=== PATIENT | female | born 1955 | race Caucasian/White ===

== ENCOUNTER 2021-05-04 05:38 | Inpatient (IN) ==
[2021-05-04] MEDS ORDERED: ceFAZolin 1,000 MG VIAL ONE (05:59)
[2021-05-04] MEDS ORDERED: VANCOMYCIN 1,000 MG VIAL ONE (05:59)
[2021-05-04] MEDS ORDERED: DIAZEPAM 5 MG TABLET PO ONE (06:21)
[2021-05-04] MEDS ORDERED: FAMOTIDINE 20 MG TABLET PO ONE (06:21)
[2021-05-04] MEDS ORDERED: GABAPENTIN 400 MG CAPSULE PO ONE (06:21)
[2021-05-04] MEDS ORDERED: ACETAMINOPHEN 500 MG TABLET PO ONE (06:21)
[2021-05-04] MEDS ORDERED: fentaNYL 100 MCG/2 ML VIAL ONE (06:23)
[2021-05-04] MEDS ORDERED: MIDAZOLAM 2 MG/2 ML VIAL ONE (06:23)
[2021-05-04] MEDS ORDERED: LACTATED RINGERS 1,000 ML IV SCH (06:30)
[2021-05-04] MEDS ORDERED: DEXAMETHASONE 4 MG/1 ML VIAL ONE (06:36)
[2021-05-04] MEDS ORDERED: LIDOCAINE 1% 5 ML VIAL ONE (06:36)
[2021-05-04] MEDS ORDERED: ROPIVACAINE 0.5% 30 ML VIAL ONE (06:36)
[2021-05-04] MEDS ORDERED: VANCOMYCIN INJ 1,000 MG in SODIUM CHLORIDE 0.9% 250 ML IV ONE (07:00)
[2021-05-04] MEDS ORDERED: TEMAZEPAM 7.5 MG CAPSULE PO PRN (07:11)
[2021-05-04] MEDS ORDERED: ONDANSETRON 4 MG/2 ML VIAL IV PRN (07:11)
[2021-05-04] MEDS ORDERED: MAGNESIUM HYDROXIDE SUSP 30 ML UDCUP PO PRN (07:11)
[2021-05-04] MEDS ORDERED: diphenhydrAMINE CAP 25 MG CAPSULE PO PRN (07:11)
[2021-05-04] MEDS ORDERED: MORPHINE 4 MG/1 ML VIAL IV PRN ×2 (07:11→07:49)
[2021-05-04] MEDS ORDERED: PROMETHAZINE 25 MG/1 ML VIAL IM PRN (07:11)
[2021-05-04] MEDS ORDERED: BISACODYL 10 MG SUPP RECTAL PRN (07:11)
[2021-05-04] MEDS ORDERED: LACTULOSE 20 GM/30 ML UDCUP PO PRN (07:11)
[2021-05-04] MEDS ORDERED: PHENYLEPHRINE 1 MG/10 ML SYRINGE IV ONE (08:01)
[2021-05-04] MEDS ORDERED: propofoL 200 MG/20 ML VIAL IV ONE (08:01)
[2021-05-04] MEDS ORDERED: TRANEXAMIC ACID 1,000 MG/10 ML VIAL ONE (08:01)
[2021-05-04] MEDS ORDERED: SODIUM CHLORIDE 0.9% 100 ML IV ONE (08:01)
[2021-05-04] MEDS ORDERED: MORPHINE 2 MG/1 ML SYRINGE IV PRN ×2 (09:00)
[2021-05-04] MEDS ORDERED: MORPHINE 10 MG/1 ML VIAL IV PRN (09:00)
[2021-05-04] MEDS: amLODIPine 5 MG TABLET PO SCH (10:57)
[2021-05-04] MEDS: lisinopriL 20 MG TABLET PO SCH (12:40)
[2021-05-04] MEDS: ceFAZolin 2,000 MG/50 ML DUPLEX IV SCH ×2 (14:14→21:48)
[2021-05-04] MEDS: DOCUSATE SODIUM 100 MG CAPSULE PO SCH (20:16)
[2021-05-04] MEDS: FONDAPARINUX 2.5 MG/0.5 ML SYRINGE SUBCUT SCH (20:16)
[2021-05-05 05:46] LABS: Basophils % 0.4 % (0.0-0.8); Eosinophils % 0.1 % (0.00-10.9); Hematocrit 36.4 VOL% (35.7-47.0); Hemoglobin 12.1 GM/DL (12.0-16.0); Immature Granulocytes % 0.1 %; Immature Granulocytes Absolute 0.01 #; Lymphocytes # 0.8 10*3/uL (1.4-4.0); Lymphocytes % 10.9 % (21.3-54.2); Mean Corpuscular HGB Conc 33.2 GM/DL (32-36); Mean Corpuscular Volume 97.6 FL (87-102); Neutrophils % 76.5 % (38.7-73.9); Platelet Count 249 T/CUMM (130-400); Red Blood Count 3.73 MC/CUMM (3.8-5.5); Red Cell Distribution Width 13.4 % (9.3-17.3); White Blood Count 7.2 T/CUMM (4-12)
[2021-05-05] MEDS: LEVOTHYROXINE 25 MCG TABLET PO SCH (06:03)
[2021-05-05 06:14] LABS: Calcium 8.5 MG/DL (8.5-10.1); Osmolality,Calculated 277.5 MOS/KG (273-304); Potassium 4.2 MMOL/L (3.5-5.1)
[2021-05-05] MEDS: ASPIRIN CHEW 81 MG TABLET PO SCH (08:41)
[2021-05-05] MEDS: amLODIPine 5 MG TABLET PO SCH (08:42)
[2021-05-05] MEDS: ZINC GLUCONATE 50 MG TABLET PO SCH (08:42)
[2021-05-05] MEDS: MAGNESIUM OXIDE 400 MG TABLET PO SCH (08:42)
[2021-05-05] MEDS: lisinopriL 20 MG TABLET PO SCH (08:42)
[2021-05-05] MEDS: DOCUSATE SODIUM 100 MG CAPSULE PO SCH ×2 (08:42→20:27)
[2021-05-05] MEDS: FONDAPARINUX 2.5 MG/0.5 ML SYRINGE SUBCUT SCH (20:27)
[2021-05-06] MEDS: LEVOTHYROXINE 25 MCG TABLET PO SCH (06:03)
[2021-05-06] MEDS: MAGNESIUM OXIDE 400 MG TABLET PO SCH (08:36)
[2021-05-06] MEDS: lisinopriL 20 MG TABLET PO SCH (08:36)
[2021-05-06] MEDS: ZINC GLUCONATE 50 MG TABLET PO SCH (08:36)
[2021-05-06] MEDS: amLODIPine 5 MG TABLET PO SCH (08:36)
[2021-05-06] MEDS: DOCUSATE SODIUM 100 MG CAPSULE PO SCH (08:37)
[2021-05-06] MEDS: ASPIRIN CHEW 81 MG TABLET PO SCH (08:37)
[2021-05-06 11:11] VITALS: BP 146/71
== END 2021-05-06 12:03 | disposition home health service (06) | DRG 470 ==
LOC: N.OR 05:38 → N.SDSINP 05:42 → N.3E 10:03
PROVIDERS: ADMIT Orthopaedic Surgery; ATTEND Orthopaedic Surgery